=== PATIENT | female | born 1975 ===

== ENCOUNTER 2021-06-08 09:13 | Outpatient (REF) | payer OTHER, SELFPAY ==
[2021-06-08 14:36] LABS: Glucose 96 mg/dL (74-106)
[2021-06-08 20:51] LABS: Calculated LDL 103 mg/dL (<100); Cholesterol 187 mg/dL (<200); HDL Cholesterol 60 mg/dL (40-60); Triglyceride 120 mg/dL (<150)
[2021-06-09 09:42] LABS: HIV-1/2 Ag & Ab Screen Negative (Negative)
[2021-06-09 10:37] LABS: Hepatitis C Ab w Rflx HCV PCR Negative (Negative)
== END 2021-06-08 09:14 | disposition home or self-care (01) ==
LOC: NCHCN 09:13
PROVIDERS: Visit Provider Nurse Practitioner Family
DX: Z13.220 Encounter for screening for lipoid disorders (principal); Z13.1 Encounter for screening for diabetes mellitus; Z11.59 Encounter for screening for other viral diseases; Z11.4 Encounter for screening for human immunodeficiency virus [HIV]
CPT/HCPCS: 80061; 82947; 86803; 87389

== ENCOUNTER 2023-02-21 19:08 | Outpatient (REF) | payer OTHER, SELFPAY ==
[2023-02-21 22:09] LABS: HCT 35.8 % (36.0-46.0); HGB 11.3 g/dL (11.2-15.7); MCHC 31.6 % (32.0-36.0); MCV 89 fL (80-95); MPV 11.8 fL (8.0-11.0); Platelet Count 249 10^3/uL (130-400); RBC 4.04 10^6/uL (3.93-5.22); RDW 12.8 % (11.7-14.6); RDW-SD 41.3 fL; WBC 8.63 10^3/uL (4.4-10.8)
[2023-02-21 22:49] LABS: ALT 24 U/L (14-59); AST 22 U/L (15-37); Albumin 3.7 g/dL (3.4-5.0); Alkaline Phosphatase 67 U/L (46-116); Anion Gap 5.6 mmol/L (3-11); BUN 19 mg/dL (7-18); Bilirubin, Total 0.6 mg/dL (0.2-1.0); CO2 29.4 mmol/L (21.0-32.0); CREATININE 0.8 mg/dL (0.55-1.02); Calculated LDL 89 mg/dL (<100); Chloride 105 mmol/L (98-107); Cholesterol 167 mg/dL (<200); Estimated GFR 91.97 (mL/min/1.73m2); Ferritin 18 ng/mL (8-252); Glucose 85 mg/dL (74-106); HDL Cholesterol 53 mg/dL (40-60); Potassium 3.7 mmol/L (3.5-5.1); Sodium 140 mmol/L (136-145); TSH (W/Ref FT4) 2.28 uIU/mL (0.36-3.74); Total Protein 7.6 g/dL (6.4-8.2); Triglyceride 127 mg/dL (<150); Vitamin B12 344 pg/mL (193-986)
== END 2023-02-21 19:09 | disposition home or self-care (01) ==
LOC: NCHCN 19:08
PROVIDERS: Visit Provider Nurse Practitioner Family
DX: Z13.220 Encounter for screening for lipoid disorders (principal); R42 Dizziness and giddiness
CPT/HCPCS: 80053; 80061; 85027; 82607; 82728; 84443

== ENCOUNTER 2024-01-14 17:48 | Outpatient (REF) | payer OTHER, SELFPAY ==
[2024-01-14 21:14] LABS: HCT 38.7 % (36.0-46.0); HGB 12.3 g/dL (11.2-15.7); MCH 28.6 pg (27.0-33.0); MCHC 31.8 % (32.0-36.0); MCV 90 fL (80-95); Platelet Count 274 10^3/uL (130-400); RDW 12.6 % (11.7-14.6); RDW-SD 41.6 fL; WBC 8.58 10^3/uL (4.4-10.8)
[2024-01-14 21:43] LABS: ALT 30 U/L (14-59); AST 23 U/L (15-37); Albumin 3.8 g/dL (3.4-5.0); Alkaline Phosphatase 68 U/L (46-116); BUN 18 mg/dL (7-18); Bilirubin, Total 1.3 mg/dL (0.2-1.0); Chloride 101 mmol/L (98-107); Estimated GFR 69.93 (mL/min/1.73m2); Ferritin 29 ng/mL (8-252); Glucose 98 mg/dL (74-106); Sodium 138 mmol/L (136-145); TSH (W/Ref FT4) 1.54 uIU/mL (0.36-3.74); Total Protein 7.7 g/dL (6.4-8.2)
== END 2024-01-14 17:49 | disposition home or self-care (01) ==
LOC: NCHCN 17:48
PROVIDERS: Visit Provider Nurse Practitioner Family
DX: R79.89 Other specified abnormal findings of blood chemistry (principal)
CPT/HCPCS: 80053; 85027; 82728; 84443

== ENCOUNTER 2024-02-12 11:50 | Outpatient (REF) | payer OTHER, SELFPAY ==
[2024-02-12 14:51] LABS: ALT 19 U/L (14-59); AST 17 U/L (15-37); Albumin 3.8 g/dL (3.4-5.0); Alkaline Phosphatase 70 U/L (46-116); Anion Gap 6.9 mmol/L (3-11); BUN 14 mg/dL (7-18); Bilirubin, Direct 0.1 mg/dL (0.0-0.2); Bilirubin, Total 0.6 mg/dL (0.2-1.0); CO2 30.1 mmol/L (21.0-32.0); CREATININE 0.7 mg/dL (0.55-1.02); Calcium 9.1 mg/dL (8.5-10.1); Chloride 103 mmol/L (98-107); Estimated GFR 107.28 (mL/min/1.73m2); Glucose 113 mg/dL (74-106); Potassium 4.3 mmol/L (3.5-5.1); Sodium 140 mmol/L (136-145)
[2024-02-12 15:03] LABS: Hemoglobin A1C 5.8 % (<5.7)
[2024-02-13 08:52] LABS: HBs Antibody, Quant <3.1 mIU/mL (See Note); Hepatitis B Surface Ab Negative (See Note)
[2024-02-13 09:10] LABS: Hepatitis B Surface Ag Negative (Negative)
[2024-02-13 09:37] LABS: Hepatitis C Ab w Rflx HCV PCR Negative (Negative)
[2024-02-13 09:50] LABS: Hep B Core Antibody Negative (Negative)
== END 2024-02-12 11:51 | disposition home or self-care (01) ==
LOC: NCHCN 11:50
PROVIDERS: PCP Nurse Practitioner Family; Visit Provider Nurse Practitioner Family
DX: R17 Unspecified jaundice (principal); Z11.59 Encounter for screening for other viral diseases; Z13.1 Encounter for screening for diabetes mellitus; Z01.84 Encounter for antibody response examination
CPT/HCPCS: 80053; 86704; 86706; 86803; 87340; 82248; 83036

== ENCOUNTER 2024-04-30 17:58 | Outpatient (REF) | payer OTHER, SELFPAY ==
[2024-04-30 21:08] LABS: HCT 37.5 % (36.0-46.0); HGB 12.2 g/dL (11.2-15.7); MCH 28.8 pg (27.0-33.0); MCHC 32.5 % (32.0-36.0); MCV 88 fL (80-95); Platelet Count 243 10^3/uL (130-400); RBC 4.24 10^6/uL (3.93-5.22); RDW 12.1 % (11.7-14.6); RDW-SD 38.6 fL; WBC 6.92 10^3/uL (4.4-10.8)
[2024-04-30 21:32] LABS: Ferritin 20 ng/mL (8-252)
== END 2024-04-30 17:59 | disposition home or self-care (01) ==
LOC: NCHCN 17:58
PROVIDERS: PCP Nurse Practitioner Family; Visit Provider Nurse Practitioner Family
DX: R55 Syncope and collapse (principal)
CPT/HCPCS: 85027; 82728